=== PATIENT | female | born 1935 | race Caucasian/White ===

== ENCOUNTER 2016-05-29 16:11 | Emergency (ER) | payer OTHER ==
[~2016-05-29 16:11] MED LIST: ADVAIR 250/5028 PUFF INH; ALL DAY ALLERGY10 M2 PO; ASPIRIN325 MG PO; ATIVAN1 MG PO; ATROVENT (00.2 MG/ML INH; BENZONATATE100 MG PO; CERTAGEN1 EACH PO; CORDARONE200 MG PO; EVISTA60 MG PO; GLUCOPHAGE XR500 MG PO; HCTZ25 MG PO; HYDRALAZINE25 MG PO; ISOSORBIDE MONO60 MG PO; KLOR-CON 1010 MEQ PO; LACTINEX1 EACH PO; LISINOPRIL40 MG PO; LOPRESSOR50 MG PO; MIRALAX17 GM PO; MUCINEX 600MG600 MG PO; NITROQUIK SL0.4 MG SL; PAXIL10 MG PO; PAXIL20 M1 PO; PLAVIX75 MG PO; PREDNISONE5 MG PO; PRILOSEC20 MG PO; SINGULAIR10 MG PO; SPIRIVA 185 PUFFS/IN INH; SYNTHROID137 MCG PO; THEO-24200 MG PO; TOPROL XL 25MG25 MG PO; TRAMADOL HCL50 MG PO; VENTOLIN (2.5 MG/3 M INH; VITAMIN D1000 UNI1 PO; ZITHROMAX250 MG PO
== END 2016-05-29 17:37 | disposition home or self-care (01) ==
LOC: FER 16:11
DX: R04.0 Epistaxis (principal); I10 Essential (primary) hypertension; E11.9 Type 2 diabetes mellitus without complications; I48.91 Unspecified atrial fibrillation; E03.9 Hypothyroidism, unspecified; Z88.1 Allergy status to other antibiotic agents; Z88.5 Allergy status to narcotic agent; Z79.82 Long term (current) use of aspirin; Z79.02 Long term (current) use of antithrombotics/antiplatelets

== ENCOUNTER 2016-11-18 16:01 | Emergency (ER) | payer OTHER | END 2016-11-18 17:51 | disposition home or self-care (01) | LOC: FER 16:01 | DX: S80.01XA Contusion of right knee, initial encounter (principal); S20.211A Contusion of right front wall of thorax, initial encounter; Z88.1 Allergy status to other antibiotic agents; Z88.5 Allergy status to narcotic agent; W18.09XA Striking against other object with subsequent fall, initial encounter | CPT/HCPCS: 71101; 94010; J1100; J1885 ==

== ENCOUNTER 2020-06-07 15:53 | Day surgery (SDCO) | payer MEDICARE, OTHER ==
[~2020-06-07 15:53] MED LIST changes: +AMIODARONE HCL200 MG PO; +ASPIRIN EC325 MG PO; +BACLOFEN 10MG T10 MG PO; +CARDIZEM CD240 M1 PO; +CEFDINIR300 MG PO; +COLACE100 MG PO; +DALIRESP500 MCG PO; +HCTZ12.5 MG PO; +KLOR-CON M 1010 MEQ PO; -PAXIL20 M1 PO; +PREDNISONE10 M1 PO; +SYNTHROID125 MCG PO; +VIBRAMYCIN100 MG PO
[2020-06-07 16:53] LABS: BASOPHIL 0.6 % (0-2); HCT 23.5 % (37.0-47.0); HGB 7.6 g/dl (12.5-16.0); LYMPHOCYTE 6.8 % (15-48); MCH 30.5 pg (25.0-31.0); MCHC 32.3 g/dL (32.0-36.0); MCV 94.4 fL (78.0-100.0); MONOCYTE 10.6 % (0-12); MPV 9.3 fL (6.0-9.5); NEUTROPHIL 78.5 % (41-80); NRBC 0; PLT 268 K/uL (150-400); RBC 2.49 M/uL (4.20-5.40); RDW 13.3 % (11.5-14.0); WBC 8.3 K/uL (4.0-10.5)
[2020-06-07 17:04] LABS: INR 1.19 (0.9-1.2); PROTHROMBIN TIME 14.3 SECONDS (11.4-13.6)
[2020-06-07 17:13] LABS: ALBUMIN 3.5 g/dL (3.4-5.0); BILIRUBIN - TOTAL 0.2 mg/dL (0.2-1.0); BUN/CREAT RATIO (CALC) 11.1 RATIO; CREATININE 0.99 mg/dL (0.51-0.95); GLOBULIN (CALCULATION) 3.1 g/dL; POTASSIUM 4.9 mmol/L (3.5-5.1); TOTAL PROTEIN 6.6 g/dL (6.4-8.2)
[2020-06-07 17:20] LABS: CKMB 2.8 ng/mL (0.0-3.6); PRO-BNP 1635 pg/mL (<450)
[2020-06-07 17:33] LABS: LACTIC ACID 0.5 mmol/L (0.4-1.9)
[2020-06-07 19:43] LABS: BILIRUBIN NEGATIVE (NEGATIVE); BLOOD NEGATIVE Ery/uL (NEGATIVE); CLARITY CLEAR (CLEAR); COLOR YELLOW (YELLOW); GLUCOSE (U) NORMAL (NORMAL); LEUKOCYTES NEGATIVE Leu/uL (NEGATIVE); NITRITE POSITIVE (NEGATIVE); PROTEIN NEGATIVE (NEGATIVE); UROBILINOGEN 0.2 mg/dL (0.2-1.0); pH 7.5 (5.0-9.0)
[2020-06-07 19:48] LABS: BACTERIA 3+; SQUAMOUS EPITHELIAL CELLS RARE
[2020-06-07] MEDS ORDERED: CARAFATE1 GM PO (22:34)
[2020-06-07] MEDS ORDERED: MUCINEX 600MG600 MG PO (22:35)
[2020-06-07] MEDS ORDERED: WELLBUTRIN SR150 MG PO (22:35)
[2020-06-07] MEDS ORDERED: FOLIC ACID1 MG PO (22:36)
[2020-06-07] MEDS ORDERED: BACTRIM DS TAB1 EACH PO (22:36)
[2020-06-08 04:48] LABS: BASOPHIL 0.1 % (0-2); EOSINOPHIL 0 % (0-7); HCT 26.8 % (37.0-47.0); HGB 8.8 g/dl (12.5-16.0); LYMPHOCYTE 2.2 % (15-48); MCH 30.3 pg (25.0-31.0); MCHC 32.8 g/dL (32.0-36.0); MCV 92.4 fL (78.0-100.0); MONOCYTE 0.6 % (0-12); MPV 9.5 fL (6.0-9.5); NEUTROPHIL 96.7 % (41-80); NRBC 0; PLT 252 K/uL (150-400); RDW 14.1 % (11.5-14.0)
[2020-06-08 04:50] LABS: WBC 6.7 K/uL (4.0-10.5)
[2020-06-08 05:09] LABS: BUN/CREAT RATIO (CALC) 18.4 RATIO; CREATININE 0.76 mg/dL (0.51-0.95); POTASSIUM 4.7 mmol/L (3.5-5.1)
--- NOTE | 2020-06-08 13:54 | NUR ---
BLADDER SCAN PERFORMED IMMEDIATELY AFTER VOIDING. THREE READINGS CONFIRM A RESIDUAL BLADDER VOLUME OF 50 ML.
[2020-06-09] MEDS ORDERED: BACTRIM DS TAB1 EACH PO (07:34)
[2020-06-09] MEDS ORDERED: AZITHROMYCIN250 MG PO (07:34)
[2020-06-09] MEDS ORDERED: PREDNISONE 20MG20 MG PO (07:34)
[2020-06-09] MEDS ORDERED: DOXYCYCLINE MO100 MG PO (07:38)
[2020-06-09] MEDS ORDERED: DUONEB 2.5-0.5M1 AMP INH (08:22)
[2020-06-09] MEDS ORDERED: LASIX20 MG PO (08:22)
== END 2020-06-09 12:15 | disposition home health service (06) ==
LOC: FER 15:53 → FMS 18:44
PROVIDERS: Emergency Medicine; Nurse Practitioner; ADMIT Allergy & Immunology Allergy
DX: D50.9 Iron deficiency anemia, unspecified (principal); J44.1 Chronic obstructive pulmonary disease with (acute) exacerbation; S51.012A Laceration without foreign body of left elbow, initial encounter; N39.0 Urinary tract infection, site not specified; B96.89 Other specified bacterial agents as the cause of diseases classified elsewhere; I48.0 Paroxysmal atrial fibrillation; I25.10 Atherosclerotic heart disease of native coronary artery without angina pectoris; E78.5 Hyperlipidemia, unspecified; E03.9 Hypothyroidism, unspecified; E11.40 Type 2 diabetes mellitus with diabetic neuropathy, unspecified; I10 Essential (primary) hypertension; M19.90 Unspecified osteoarthritis, unspecified site; K21.9 Gastro-esophageal reflux disease without esophagitis; R13.10 Dysphagia, unspecified; M47.816 Spondylosis without myelopathy or radiculopathy, lumbar region; Z87.891 Personal history of nicotine dependence; Z79.01 Long term (current) use of anticoagulants; Z79.2 Long term (current) use of antibiotics; Z79.82 Long term (current) use of aspirin; Z79.899 Other long term (current) drug therapy; Z88.1 Allergy status to other antibiotic agents; Z88.5 Allergy status to narcotic agent; Z99.81 Dependence on supplemental oxygen; Z20.822 Contact with and (suspected) exposure to COVID-19; W19.XXXA Unspecified fall, initial encounter
CPT/HCPCS: 36415; 36430; 36600; 71045; 72110; 72170; 73080; 80048; 80053; 81001; 82553; 82803; 83036; 83540; 83550; 83605; 83880; 84484; 85025; 85610; 85730; 86850; 86900; 86901; 86922; 90471; 90715; 93005; 94640; 94664; 97165; 97535; G0378; J0360; J0456; J0696; J1940; J2916; J2930; J7050; J7512; P9016; U0002

== ENCOUNTER 2020-08-10 13:38 | Emergency (ER) | payer MEDICARE, OTHER ==
[~2020-08-10 13:38] MED LIST changes: +AZITHROMYCIN250 MG PO; +BACTRIM DS TAB1 EACH PO; +CARAFATE1 GM PO; +DOXYCYCLINE MO100 MG PO; +DUONEB 2.5-0.5M1 AMP INH; +FOLIC ACID1 MG PO; +LASIX20 MG PO; +PREDNISONE 20MG20 MG PO; +WELLBUTRIN SR150 MG PO
[2020-08-10 14:08] LABS: BASOPHIL 0.8 % (0-2); EOSINOPHIL 3.2 % (0-7); HCT 26.9 % (37.0-47.0); HGB 8.9 g/dl (12.5-16.0); LYMPHOCYTE 14.7 % (15-48); MCH 30.3 pg (25.0-31.0); MCHC 33.1 g/dL (32.0-36.0); MCV 91.5 fL (78.0-100.0); MONOCYTE 9.3 % (0-12); MPV 9.7 fL (6.0-9.5); NEUTROPHIL 70.7 % (41-80); NRBC 0; PLT 313 K/uL (150-400); RBC 2.94 M/uL (4.20-5.40); RDW 14.5 % (11.5-14.0)
[2020-08-10 14:40] LABS: LACTIC ACID 1.6 mmol/L (0.4-1.9)
[2020-08-10 15:07] LABS: ALBUMIN 3.5 g/dL (3.4-5.0); BILIRUBIN - TOTAL 0.3 mg/dL (0.2-1.0); CREATININE 0.81 mg/dL (0.51-0.95); GLOBULIN (CALCULATION) 2.7 g/dL; POTASSIUM 4.5 mmol/L (3.5-5.1); PRO-BNP 300 pg/mL (<450); TOTAL PROTEIN 6.2 g/dL (6.4-8.2)
[2020-08-10 16:49] LABS: BILIRUBIN NEGATIVE (NEGATIVE); BLOOD NEGATIVE Ery/uL (NEGATIVE); CLARITY CLEAR (CLEAR); COLOR YELLOW (YELLOW); GLUCOSE (U) NORMAL (NORMAL); LEUKOCYTES NEGATIVE Leu/uL (NEGATIVE); NITRITE NEGATIVE (NEGATIVE); PROTEIN NEGATIVE (NEGATIVE); SPECIFIC GRAVITY 1.015 (1.001-1.030); UROBILINOGEN 0.2 mg/dL (0.2-1.0)
[2020-08-10] MEDS ORDERED: PREDNISONE 20MG20 MG PO (19:21)
[2020-08-10] MEDS ORDERED: VIBRAMYCIN100 MG PO (19:21)
== END 2020-08-10 19:40 | disposition home or self-care (01) ==
LOC: FER 13:38
PROVIDERS: Emergency Medicine; Nurse Practitioner Family
DX: J44.1 Chronic obstructive pulmonary disease with (acute) exacerbation (principal); E03.9 Hypothyroidism, unspecified; Z90.49 Acquired absence of other specified parts of digestive tract; Z87.891 Personal history of nicotine dependence; Z88.1 Allergy status to other antibiotic agents; Z88.5 Allergy status to narcotic agent; Z99.81 Dependence on supplemental oxygen
CPT/HCPCS: 36415; 71045; 71046; 80053; 81003; 83605; 83880; 84145; 84484; 85025; 87040; 93005; J2930

== ENCOUNTER 2020-10-03 17:36 | Inpatient (IN) | payer MEDICARE, OTHER ==
[~2020-10-03] VITALS: Ht 165.1 cm; Wt 78.1 kg
[2020-10-03 18:14] LABS: BASOPHIL 0.7 % (0-2); EOSINOPHIL 4.4 % (0-7); HCT 28.2 % (37.0-47.0); LYMPHOCYTE 13.6 % (15-48); MCH 29.9 pg (25.0-31.0); MCHC 31.9 g/dL (32.0-36.0); MCV 93.7 fL (78.0-100.0); MONOCYTE 10.5 % (0-12); NEUTROPHIL 70.2 % (41-80); NRBC 0; PLT 235 K/uL (150-400); RBC 3.01 M/uL (4.20-5.40); RDW 13.8 % (11.5-14.0); WBC 8.1 K/uL (4.0-10.5)
[2020-10-03 18:37] LABS: BILIRUBIN - TOTAL 0.3 mg/dL (0.2-1.0); BUN/CREAT RATIO (CALC) 37.4 RATIO; CREATININE 1.23 mg/dL (0.51-0.95); FT4 (FREE T4) 1.7 ng/dL (0.76-1.46); GLOBULIN (CALCULATION) 2.7 g/dL; POTASSIUM 5.5 mmol/L (3.5-5.1); TOTAL PROTEIN 6.7 g/dL (6.4-8.2)
[2020-10-03] MEDS ORDERED: ASPIRIN EC81 MG PO (21:27)
[2020-10-03] MEDS ORDERED: VALSARTAN40 MG PO (21:27)
[2020-10-03] MEDS ORDERED: KEFLEX250 MG PO (21:29)
[2020-10-03] MEDS ORDERED: AZELASTINE205.5 MCG/ (21:30)
[2020-10-03] MEDS ORDERED: FLONASE ALLER15.8 ML (21:32)
--- NOTE | 2020-10-04 05:00 | NUR ---
AT 0430 PT CALLED THIS NURSE INTO ROOM C/O OF LEFT FACIAL NUMBNESS,ASKED PT IF THAT WAS HER ONLY COMPLAINT AND PT STATED YES,STROKE ASSESS PERFORMED WITH NO S/S OF WEAKNESS TO ANY EXTREMITY,ABLE TO FEEL ALL EXTREMITY,NEGATIVE NIH STROKE SCALE,INFORMED JULIOCESAR OF FINDINGS,CT OF HEAD ORDERED,PT WAS BROUGHT DOWN TO CT PER BED AND 2 STaff MEMBERS AT 0435, BROUGHT BACK AT 0450,AT 0500 RADIOLOGIST CALLED WITH RESULTS WHICH WERE NO ACUTE FINDINGS,NOTIFIED CLARISSA BOLIVAR OF RESULTS,NO NEW ORDERS AT THIS TIME
[2020-10-04 07:06] LABS: BASOPHIL 1.2 % (0-2); EOSINOPHIL 4.3 % (0-7); HCT 27.8 % (37.0-47.0); HGB 8.6 g/dl (12.5-16.0); LYMPHOCYTE 15.4 % (15-48); MCH 29.4 pg (25.0-31.0); MCHC 30.9 g/dL (32.0-36.0); MCV 94.9 fL (78.0-100.0); MPV 10.7 fL (6.0-9.5); NEUTROPHIL 66.7 % (41-80); NRBC 0; PLT 228 K/uL (150-400); RBC 2.93 M/uL (4.20-5.40); RDW 13.8 % (11.5-14.0); WBC 6.9 K/uL (4.0-10.5)
[2020-10-04 07:40] LABS: CREATININE 1.09 mg/dL (0.51-0.95); POTASSIUM 4.8 mmol/L (3.5-5.1)
--- NOTE | 2020-10-04 14:59 | NUR ---
10/04/20 Ms. Marcelo lives with her daughter. [facility] is current and has been notified of admission. Patient has home 02,rw, 3in1, and s. chair. Please notify [facility] at [phone] if patient discharges over the weekend.
[2020-10-05 05:14] LABS: BASOPHIL 0.8 % (0-2); EOSINOPHIL 5.1 % (0-7); HCT 28.9 % (37.0-47.0); LYMPHOCYTE 18.4 % (15-48); MCH 29.2 pg (25.0-31.0); MCHC 31.1 g/dL (32.0-36.0); MCV 93.8 fL (78.0-100.0); MPV 9.7 fL (6.0-9.5); NEUTROPHIL 64.3 % (41-80); NRBC 0; PLT 222 K/uL (150-400); RBC 3.08 M/uL (4.20-5.40); RDW 13.5 % (11.5-14.0); WBC 7.8 K/uL (4.0-10.5)
[2020-10-05 05:40] LABS: CREATININE 0.78 mg/dL (0.51-0.95); POTASSIUM 4.1 mmol/L (3.5-5.1)
[2020-10-06] MEDS ORDERED: PACERONE100 MG PO (08:52)
[2020-10-06] MEDS ORDERED: VALSARTAN320 MG PO (10:23)
== END 2020-10-06 12:58 | disposition home health service (06) | DRG 309 ==
LOC: FER 17:36 → FTCU 19:56 → FICU 19:56 → FTCU 22:59 → FMS 10-05 10:28
PROVIDERS: Internal Medicine; Nurse Practitioner; ADMIT Internal Medicine
DX: I49.5 Sick sinus syndrome (principal); N17.9 Acute kidney failure, unspecified; J96.11 Chronic respiratory failure with hypoxia; D50.9 Iron deficiency anemia, unspecified; I48.91 Unspecified atrial fibrillation; I25.10 Atherosclerotic heart disease of native coronary artery without angina pectoris; Z20.822 Contact with and (suspected) exposure to COVID-19; E03.9 Hypothyroidism, unspecified; E78.5 Hyperlipidemia, unspecified; E11.40 Type 2 diabetes mellitus with diabetic neuropathy, unspecified; M19.90 Unspecified osteoarthritis, unspecified site; Z51.5 Encounter for palliative care; Z66 Do not resuscitate; I11.9 Hypertensive heart disease without heart failure; F41.9 Anxiety disorder, unspecified; I27.23 Pulmonary hypertension due to lung diseases and hypoxia; F32.9 Major depressive disorder, single episode, unspecified; Z87.891 Personal history of nicotine dependence; Z99.81 Dependence on supplemental oxygen; Z87.01 Personal history of pneumonia (recurrent); Z91.81 History of falling; Z90.49 Acquired absence of other specified parts of digestive tract; Z90.89 Acquired absence of other organs; Z98.890 Other specified postprocedural states; Z88.6 Allergy status to analgesic agent; Z88.5 Allergy status to narcotic agent; Z88.1 Allergy status to other antibiotic agents; Z79.82 Long term (current) use of aspirin; Z79.51 Long term (current) use of inhaled steroids; Z79.890 Hormone replacement therapy; Z79.899 Other long term (current) drug therapy
CPT/HCPCS: 36415; 70450; 71045; 80048; 80053; 82607; 82728; 82746; 83540; 83550; 84439; 84443; 84484; 85025; 93005; 94010; 94640; 94667; 94668; J0360; J7030; U0002

== ENCOUNTER 2020-12-16 17:50 | Emergency (ER) | payer MEDICARE, OTHER ==
[~2020-12-16 17:50] MED LIST changes: +ASPIRIN EC81 MG PO; +AZELASTINE205.5 MCG/; +FLONASE ALLER15.8 ML; +KEFLEX250 MG PO; +PACERONE100 MG PO; +VALSARTAN320 MG PO; +VALSARTAN40 MG PO
[2020-12-16 18:26] LABS: EOSINOPHIL 6.7 % (0-7); HCT 34.7 % (37.0-47.0); HGB 11.3 g/dl (12.5-16.0); LYMPHOCYTE 16.2 % (15-48); MCH 29.3 pg (25.0-31.0); MCHC 32.6 g/dL (32.0-36.0); MCV 89.9 fL (78.0-100.0); MPV 9.5 fL (6.0-9.5); NEUTROPHIL 66.5 % (41-80); NRBC 0; PLT 289 K/uL (150-400); RBC 3.86 M/uL (4.20-5.40); RDW 13.6 % (11.5-14.0); WBC 8.1 K/uL (4.0-10.5)
[2020-12-16 18:30] LABS: INR 1.08 (0.9-1.2); PROTHROMBIN TIME 13.4 SECONDS (11.8-13.4)
[2020-12-16 18:31] LABS: PTT 35.4 SECONDS (24.4-34.7)
[2020-12-16 18:38] LABS: ALBUMIN 4.2 g/dL (3.4-5.0); BILIRUBIN - TOTAL 0.4 mg/dL (0.2-1.0); BUN/CREAT RATIO (CALC) 27.3 RATIO; CREATININE 0.66 mg/dL (0.51-0.95); POTASSIUM 4.4 mmol/L (3.5-5.1); TOTAL PROTEIN 7.2 g/dL (6.4-8.2)
[2020-12-16 18:44] LABS: PRO-BNP 279 pg/mL (<450)
[2020-12-16 21:37] LABS: BILIRUBIN NEGATIVE (NEGATIVE); BLOOD NEGATIVE Ery/uL (NEGATIVE); CLARITY CLEAR (CLEAR); COLOR YELLOW (YELLOW); GLUCOSE (U) NORMAL (NORMAL); LEUKOCYTES NEGATIVE Leu/uL (NEGATIVE); NITRITE POSITIVE (NEGATIVE); PROTEIN NEGATIVE (NEGATIVE); SPECIFIC GRAVITY 1.015 (1.001-1.030); UROBILINOGEN 0.2 mg/dL (0.2-1.0); pH 7.5 (5.0-9.0)
[2020-12-16 21:44] LABS: AMORPHOUS URATES CRYSTALS MODERATE; BACTERIA 3+; GRANULAR CASTS TRACE; URINARY WBC RARE
== END 2020-12-16 22:20 | disposition home or self-care (01) ==
LOC: FER 17:50
PROVIDERS: Emergency Medicine
DX: R07.89 Other chest pain (principal); I48.91 Unspecified atrial fibrillation; I10 Essential (primary) hypertension; J44.9 Chronic obstructive pulmonary disease, unspecified; Z88.1 Allergy status to other antibiotic agents; Z88.5 Allergy status to narcotic agent; Z87.891 Personal history of nicotine dependence; Z79.82 Long term (current) use of aspirin
CPT/HCPCS: 36415; 71045; 80053; 81001; 83880; 84484; 85025; 85379; 85610; 85730; 93005; 93971

== ENCOUNTER 2020-12-20 16:30 | Inpatient (IN) | payer MEDICARE, OTHER ==
[~2020-12-20] VITALS: Ht 167.6 cm; Wt 79.6 kg
[2020-12-20 17:58] LABS: BASOPHIL 0.3 % (0-2); EOSINOPHIL 0.3 % (0-7); HCT 31.7 % (37.0-47.0); HGB 10.2 g/dl (12.5-16.0); LYMPHOCYTE 3.8 % (15-48); MCH 29.3 pg (25.0-31.0); MCHC 32.2 g/dL (32.0-36.0); MCV 91.1 fL (78.0-100.0); MONOCYTE 7.7 % (0-12); MPV 10.6 fL (6.0-9.5); NEUTROPHIL 87.2 % (41-80); NRBC 0; PLT 229 K/uL (150-400); RBC 3.48 M/uL (4.20-5.40); RDW 13.8 % (11.5-14.0)
[2020-12-20 18:13] LABS: ALBUMIN 3.4 g/dL (3.4-5.0); BILIRUBIN - TOTAL 0.6 mg/dL (0.2-1.0); BUN/CREAT RATIO (CALC) 23.7 RATIO; CREATININE 0.59 mg/dL (0.51-0.95); POTASSIUM 4.3 mmol/L (3.5-5.1); TOTAL PROTEIN 6.4 g/dL (6.4-8.2)
[2020-12-20 18:20] LABS: PRO-BNP 805 pg/mL (<450)
[2020-12-20 18:23] LABS: LACTIC ACID 0.9 mmol/L (0.4-1.9)
[2020-12-20 19:01] LABS: C-REACTIVE PROTEIN < 0.20 mg/dL (<=0.90); LDH 137 U/L (81-234); MAGNESIUM 2.1 mg/dL (1.8-2.4)
[2020-12-20 19:51] LABS: BILIRUBIN NEGATIVE (NEGATIVE); BLOOD NEGATIVE Ery/uL (NEGATIVE); CLARITY CLEAR (CLEAR); COLOR YELLOW (YELLOW); GLUCOSE (U) NORMAL (NORMAL); LEUKOCYTES TRACE Leu/uL (NEGATIVE); NITRITE POSITIVE (NEGATIVE); PROTEIN TRACE (LOW) mg/dL (NEGATIVE); UROBILINOGEN 0.2 mg/dL (0.2-1.0); pH 6.5 (5.0-9.0)
[2020-12-20 20:07] LABS: BACTERIA 4+
[2020-12-20 20:09] LABS: TRANSITIONAL EPITHELIAL CELLS RARE
[2020-12-20 22:10] LABS: CORONAVIRUS 2019 SARS-COV-2 NEGATIVE (NEGATIVE); INFLUENZA A NAA NEGATIVE (NEGATIVE)
[2020-12-20] MEDS ORDERED: AMIODARONE HCL200 MG PO (23:18)
[2020-12-20] MEDS ORDERED: ASPIRIN EC325 MG PO (23:18)
[2020-12-20] MEDS ORDERED: WELLBUTRIN XL150 MG PO (23:22)
[2020-12-20] MEDS ORDERED: ZYRTEC10 MG PO (23:24)
[2020-12-20] MEDS ORDERED: VIBRAMYCIN100 MG PO (23:25)
[2020-12-20] MEDS ORDERED: ROBITUSSIN100 MG/5 M PO (23:30)
[2020-12-20] MEDS ORDERED: DUONEB 2.5-0.5M1 AMP INH (23:32)
[2020-12-20] MEDS ORDERED: NITROQUIK SL0.4 MG SL (23:35)
[2020-12-20] MEDS ORDERED: PRILOSEC20 MG PO (23:36)
[2020-12-20] MEDS ORDERED: DIOVAN320 MG PO (23:40)
[2020-12-20] MEDS ORDERED: ULTRAM50 MG PO (23:40)
[2020-12-20] MEDS ORDERED: PULMICORT0.5 MG/2 M INH (23:44)
[2020-12-21 06:10] LABS: BASOPHIL 0.3 % (0-2); EOSINOPHIL 0.3 % (0-7); HCT 28.1 % (37.0-47.0); HGB 9.1 g/dl (12.5-16.0); LYMPHOCYTE 7.6 % (15-48); MCH 29.5 pg (25.0-31.0); MCHC 32.4 g/dL (32.0-36.0); MCV 91.2 fL (78.0-100.0); MONOCYTE 9.2 % (0-12); MPV 9.3 fL (6.0-9.5); NEUTROPHIL 82.1 % (41-80); NRBC 0; PLT 238 K/uL (150-400); RBC 3.08 M/uL (4.20-5.40); RDW 14.1 % (11.5-14.0); WBC 17.4 K/uL (4.0-10.5)
[2020-12-21 07:02] LABS: ALBUMIN 2.7 g/dL (3.4-5.0); ALKALINE PHOSHATASE 114 U/L (46-116); ALT 26 U/L (14-59); AST 15 U/L (15-37); BILIRUBIN - TOTAL 0.4 mg/dL (0.2-1.0); BUN 14 mg/dL (7-18); BUN/CREAT RATIO (CALC) 21.9 RATIO; C-REACTIVE PROTEIN >18.00 mg/dL (<=0.90); CHLORIDE 100 mmol/L (98-107); CO2 (BICARBONATE) 27 mmol/L (21-32); CREATININE 0.64 mg/dL (0.51-0.95); GLOBULIN (CALCULATION) 3.3 g/dL; GLUCOSE 103 mg/dL (74-106); PHOSPHORUS 3.1 mg/dL (2.6-4.7); POTASSIUM 4.2 mmol/L (3.5-5.1)
[2020-12-22 05:46] LABS: BASOPHIL 0.3 % (0-2); EOSINOPHIL 0.2 % (0-7); HCT 29.1 % (37.0-47.0); HGB 9.2 g/dl (12.5-16.0); LYMPHOCYTE 3.1 % (15-48); MCH 28.9 pg (25.0-31.0); MCHC 31.6 g/dL (32.0-36.0); MCV 91.5 fL (78.0-100.0); MONOCYTE 5.7 % (0-12); MPV 9.3 fL (6.0-9.5); NEUTROPHIL 87.4 % (41-80); NRBC 0; PLT 284 K/uL (150-400); RBC 3.18 M/uL (4.20-5.40); RDW 13.7 % (11.5-14.0); RETICULOCYTE COUNT 1.2 % (1.0-2.0); WBC 18.5 K/uL (4.0-10.5)
[2020-12-22 06:35] LABS: IRON % SATURATION 21.9 %SAT (20-50)
[2020-12-22 07:17] LABS: BUN 14 mg/dL (7-18); BUN/CREAT RATIO (CALC) 22.2 RATIO; C-REACTIVE PROTEIN > 18.00 mg/dL (<=0.90); CHLORIDE 104 mmol/L (98-107); CO2 (BICARBONATE) 26 mmol/L (21-32); CREATININE 0.63 mg/dL (0.51-0.95); FOLIC ACID (SERUM) 39.5 ng/mL (8.6-58.9); GLUCOSE 137 mg/dL (74-106); MAGNESIUM 2.2 mg/dL (1.8-2.4); PHOSPHORUS 2.8 mg/dL (2.6-4.7)
[2020-12-23 05:41] LABS: BASOPHIL 0.7 % (0-2); EOSINOPHIL 0 % (0-7); HCT 29.5 % (37.0-47.0); HGB 9.4 g/dl (12.5-16.0); LYMPHOCYTE 5.1 % (15-48); MCH 28.8 pg (25.0-31.0); MCHC 31.9 g/dL (32.0-36.0); MCV 90.5 fL (78.0-100.0); MONOCYTE 7.5 % (0-12); MPV 9.5 fL (6.0-9.5); NEUTROPHIL 79.2 % (41-80); NRBC 0; PLT 329 K/uL (150-400); RBC 3.26 M/uL (4.20-5.40)
[2020-12-23 06:00] LABS: C-REACTIVE PROTEIN 10.7 mg/dL (<=0.90); CREATININE 0.62 mg/dL (0.51-0.95); MAGNESIUM 2.1 mg/dL (1.8-2.4); POTASSIUM 4.5 mmol/L (3.5-5.1)
[2020-12-23] MEDS ORDERED: AUGMENTIN 875-1 EACH PO (13:08)
[2020-12-23] MEDS ORDERED: TAMIFLU 75MG CA75 MG PO (13:08)
== END 2020-12-23 14:04 | disposition home health service (06) | DRG 871 ==
LOC: FER 16:30 → FMS 21:01
PROVIDERS: Emergency Medicine; Nurse Practitioner; ADMIT Internal Medicine
PROC: 8E0ZXY6 Isolation (ICD-10-PCS; principal; 2020-12-20)
DX: A41.9 Sepsis, unspecified organism (principal); J18.0 Bronchopneumonia, unspecified organism; J10.08 Influenza due to other identified influenza virus with other specified pneumonia; J96.21 Acute and chronic respiratory failure with hypoxia; N30.00 Acute cystitis without hematuria; Z16.11 Resistance to penicillins; J44.0 Chronic obstructive pulmonary disease with (acute) lower respiratory infection; J44.1 Chronic obstructive pulmonary disease with (acute) exacerbation; Z20.822 Contact with and (suspected) exposure to COVID-19; R65.20 Severe sepsis without septic shock; B95.2 Enterococcus as the cause of diseases classified elsewhere; E11.9 Type 2 diabetes mellitus without complications; I48.0 Paroxysmal atrial fibrillation; E03.9 Hypothyroidism, unspecified; E78.5 Hyperlipidemia, unspecified; E11.40 Type 2 diabetes mellitus with diabetic neuropathy, unspecified; I10 Essential (primary) hypertension; M19.90 Unspecified osteoarthritis, unspecified site; H10.9 Unspecified conjunctivitis; D50.9 Iron deficiency anemia, unspecified; Z88.5 Allergy status to narcotic agent; Z88.6 Allergy status to analgesic agent; Z88.1 Allergy status to other antibiotic agents; Z79.82 Long term (current) use of aspirin; Z79.51 Long term (current) use of inhaled steroids; Z79.890 Hormone replacement therapy; Z79.899 Other long term (current) drug therapy; Z99.81 Dependence on supplemental oxygen; Z90.49 Acquired absence of other specified parts of digestive tract; Z90.89 Acquired absence of other organs; Z98.890 Other specified postprocedural states; Z87.891 Personal history of nicotine dependence; Z82.49 Family history of ischemic heart disease and other diseases of the circulatory system; Z80.3 Family history of malignant neoplasm of breast; Y95 Nosocomial condition
CPT/HCPCS: 36415; 36600; 71045; 71275; 80048; 80053; 80202; 81001; 82728; 82746; 82803; 82962; 83540; 83550; 83605; 83615; 83735; 83880; 84100; 84145; 84484; 85025; 85379; 86140; 87040; 87070; 87088; 87205; 93005; 94010; 94640; 94668; 94760; 94762; J0456; J1100; J1650; J2185; J2405; J2543; J3370; J7030; J7050; Q9967; U0002

== ENCOUNTER 2021-06-09 16:07 | Inpatient (IN) | payer MEDICARE, OTHER ==
[~2021-06-09] VITALS: Ht 165.1 cm; Wt 76.9 kg
[~2021-06-09 16:07] MED LIST changes: +AUGMENTIN 875-1 EACH PO; +DIOVAN320 MG PO; +PULMICORT0.5 MG/2 M INH; +ROBITUSSIN100 MG/5 M PO; +TAMIFLU 75MG CA75 MG PO; +ULTRAM50 MG PO; +WELLBUTRIN XL150 MG PO; +ZYRTEC10 MG PO
[2021-06-09 17:10] LABS: BASOPHIL 0.2 % (0-2); EOSINOPHIL 0.2 % (0-7); HCT 26.9 % (37.0-47.0); HGB 9.1 g/dl (12.5-16.0); LYMPHOCYTE 5.1 % (15-48); MCH 30.3 pg (25.0-31.0); MCHC 33.8 g/dL (32.0-36.0); MCV 89.7 fL (78.0-100.0); MONOCYTE 6.8 % (0-12); MPV 11.5 fL (6.0-9.5); NEUTROPHIL 86.7 % (41-80); NRBC 0; RDW 12.6 % (11.5-14.0); WBC 19.4 K/uL (4.0-10.5)
[2021-06-09 17:25] LABS: INR 1.47 (0.9-1.2); PROTHROMBIN TIME 17.1 SECONDS (11.8-13.4); PTT 25.6 SECONDS (24.4-34.7)
[2021-06-09 17:34] LABS: ALBUMIN 3.3 g/dL (3.4-5.0); BILIRUBIN - TOTAL 0.6 mg/dL (0.2-1.0); BUN/CREAT RATIO (CALC) 20.2 RATIO; CREATININE 0.84 mg/dL (0.51-0.95); GLOBULIN (CALCULATION) 3.1 g/dL; TOTAL PROTEIN 6.4 g/dL (6.4-8.2)
[2021-06-09 18:00] LABS: PLT 76 K/uL (150-400)
[2021-06-09 18:47] LABS: BILIRUBIN NEGATIVE (NEGATIVE); BLOOD TRACE-INTACT Ery/uL (NEGATIVE); CLARITY CLEAR (CLEAR); COLOR YELLOW (YELLOW); GLUCOSE (U) TRACE mg/dL (NORMAL); LEUKOCYTES 2+ Leu/uL (NEGATIVE); NITRITE POSITIVE (NEGATIVE); PROTEIN TRACE (LOW) mg/dL (NEGATIVE); SPECIFIC GRAVITY <=1.005 (1.001-1.030); pH 6.5 (5.0-9.0)
[2021-06-09 18:54] LABS: BACTERIA 4+; RENAL EPITHELIAL CELLS RARE
[2021-06-09 19:00] LABS: CORONAVIRUS 2019 SARS-COV-2 NEGATIVE (NEGATIVE); INFLUENZA A NAA NEGATIVE (NEGATIVE)
[2021-06-09 23:01] LABS: BUN/CREAT RATIO (CALC) 19.3 RATIO; CREATININE 0.83 mg/dL (0.51-0.95); POTASSIUM 3.6 mmol/L (3.5-5.1)
[2021-06-09] MEDS ORDERED: ASPIRIN EC81 MG PO (23:24)
[2021-06-09] MEDS ORDERED: KEFLEX250 MG PO (23:24)
[2021-06-09] MEDS ORDERED: DALIRESP500 MCG PO (23:27)
[2021-06-09] MEDS ORDERED: FOLIC ACID1 MG PO (23:29)
[2021-06-09] MEDS ORDERED: SPIRIVA 18MCG18 MCG INH (23:34)
[2021-06-09] MEDS ORDERED: VITAMIN B-121000 MC1 SL (23:34)
[2021-06-09] MEDS ORDERED: PROBIOTIC 5 BI1 EACH PO (23:36)
[2021-06-09] MEDS ORDERED: MUCINEX 600MG600 MG PO (23:36)
[2021-06-09] MEDS ORDERED: IPRATROPIUM0.2 MG/ML INH (23:37)
[2021-06-09] MEDS ORDERED: VENTOLIN (2.5 MG/3 M INH (23:39)
[2021-06-10 05:44] LABS: BASOPHIL 0.3 % (0-2); EOSINOPHIL 0.1 % (0-7); HCT 27.3 % (37.0-47.0); HGB 9.2 g/dl (12.5-16.0); LYMPHOCYTE 5.4 % (15-48); MCH 30.1 pg (25.0-31.0); MCHC 33.7 g/dL (32.0-36.0); MCV 89.2 fL (78.0-100.0); MONOCYTE 6.2 % (0-12); MPV 9.3 fL (6.0-9.5); NEUTROPHIL 87.1 % (41-80); NRBC 0; PLT 246 K/uL (150-400); RBC 3.06 M/uL (4.20-5.40); RDW 12.7 % (11.5-14.0)
[2021-06-10 05:45] LABS: WBC 20.7 K/uL (4.0-10.5)
[2021-06-10 06:36] LABS: BUN/CREAT RATIO (CALC) 19.4 RATIO; CREATININE 0.72 mg/dL (0.51-0.95); FT4 (FREE T4) 1.7 ng/dL (0.76-1.46); IRON % SATURATION 4.1 %SAT (20-50); MAGNESIUM 1.8 mg/dL (1.8-2.4); POTASSIUM 3.6 mmol/L (3.5-5.1)
--- NOTE | 2021-06-10 11:48 | NUR ---
06/10/21 Ms. Marcelo has requested [facility] at discharge; Dr. Pantoja approved. A referral was made to [facility].
[2021-06-11 05:59] LABS: BASOPHIL 0.3 % (0-2); EOSINOPHIL 0.2 % (0-7); HCT 25.1 % (37.0-47.0); HGB 8.3 g/dl (12.5-16.0); LYMPHOCYTE 5.8 % (15-48); MCH 30.1 pg (25.0-31.0); MCHC 33.1 g/dL (32.0-36.0); MCV 90.9 fL (78.0-100.0); MONOCYTE 5.7 % (0-12); MPV 9.9 fL (6.0-9.5); NRBC 0; PLT 248 K/uL (150-400); RBC 2.76 M/uL (4.20-5.40); RDW 13.2 % (11.5-14.0); WBC 15.2 K/uL (4.0-10.5)
--- NOTE | 2021-06-11 06:02 | NUR ---
PT TAKES PILLS WITH APPLESAUCE.
[2021-06-11 06:05] LABS: INR 1.25 (0.9-1.2)
[2021-06-11 06:17] LABS: BUN/CREAT RATIO (CALC) 21.1 RATIO; CREATININE 0.71 mg/dL (0.51-0.95); POTASSIUM 3.8 mmol/L (3.5-5.1)
[2021-06-13 06:00] LABS: BASOPHIL 0.7 % (0-2); EOSINOPHIL 0 % (0-7); HCT 28.3 % (37.0-47.0); HGB 9.3 g/dl (12.5-16.0); LYMPHOCYTE 4.7 % (15-48); MCH 29.4 pg (25.0-31.0); MCHC 32.9 g/dL (32.0-36.0); MCV 89.6 fL (78.0-100.0); MONOCYTE 5.8 % (0-12); MPV 9.3 fL (6.0-9.5); NEUTROPHIL 78.4 % (41-80); NRBC 0.1; PLT 316 K/uL (150-400); RBC 3.16 M/uL (4.20-5.40); RDW 13.3 % (11.5-14.0); WBC 21.4 K/uL (4.0-10.5)
[2021-06-13 06:13] LABS: BUN/CREAT RATIO (CALC) 32.3 RATIO; CREATININE 0.62 mg/dL (0.51-0.95); MAGNESIUM 1.9 mg/dL (1.8-2.4); POTASSIUM 3.4 mmol/L (3.5-5.1)
[2021-06-16 05:53] LABS: BASOPHIL 0.1 % (0-2); EOSINOPHIL 0 % (0-7); HCT 31.7 % (37.0-47.0); HGB 10.4 g/dl (12.5-16.0); LYMPHOCYTE 6.8 % (15-48); MCH 29.3 pg (25.0-31.0); MCHC 32.8 g/dL (32.0-36.0); MCV 89.3 fL (78.0-100.0); MONOCYTE 7.4 % (0-12); MPV 8.9 fL (6.0-9.5); NEUTROPHIL 54.5 % (41-80); NRBC 0.2; PLT 449 K/uL (150-400); RBC 3.55 M/uL (4.20-5.40); RDW 13.8 % (11.5-14.0)
[2021-06-16 06:00] LABS: WBC 29.7 K/uL (4.0-10.5)
[2021-06-16 06:16] LABS: BUN/CREAT RATIO (CALC) 35.8 RATIO; CREATININE 0.67 mg/dL (0.51-0.95); POTASSIUM 3.3 mmol/L (3.5-5.1)
--- NOTE | 2021-06-16 10:38 | NUR ---
06/16/21 [facility] has been notified of dc to include orders for IV antibiotics. Awaiting response from [facility] re: cost. - Report given to CASPER Saeed RN.
[2021-06-16] MEDS ORDERED: PREDNISONE 20MG20 MG PO (13:37)
[2021-06-16] MEDS ORDERED: MACROBID100 MG PO (13:37)
== END 2021-06-16 15:45 | disposition home health service (06) | DRG 190 ==
LOC: FER 16:07 → FMS 22:18 → FTCU 06-11 15:02
PROVIDERS: Allergy & Immunology; Emergency Medicine; Internal Medicine; ADMIT Internal Medicine
PROC: 02HV33Z Insertion of Infusion Device into Superior Vena Cava, Percutaneous Approach (ICD-10-PCS; principal; 2021-06-14)
DX: J44.1 Chronic obstructive pulmonary disease with (acute) exacerbation (principal); J18.9 Pneumonia, unspecified organism; N39.0 Urinary tract infection, site not specified; E87.1 Hypo-osmolality and hyponatremia; J44.0 Chronic obstructive pulmonary disease with (acute) lower respiratory infection; R06.89 Other abnormalities of breathing; B95.2 Enterococcus as the cause of diseases classified elsewhere; B96.89 Other specified bacterial agents as the cause of diseases classified elsewhere; Z20.822 Contact with and (suspected) exposure to COVID-19; J44.9 Chronic obstructive pulmonary disease, unspecified; D69.6 Thrombocytopenia, unspecified; I48.0 Paroxysmal atrial fibrillation; I10 Essential (primary) hypertension; K59.00 Constipation, unspecified; K21.9 Gastro-esophageal reflux disease without esophagitis; E78.5 Hyperlipidemia, unspecified; E03.9 Hypothyroidism, unspecified; E11.40 Type 2 diabetes mellitus with diabetic neuropathy, unspecified; D50.9 Iron deficiency anemia, unspecified; M19.90 Unspecified osteoarthritis, unspecified site; I25.10 Atherosclerotic heart disease of native coronary artery without angina pectoris; Z99.81 Dependence on supplemental oxygen; Z79.899 Other long term (current) drug therapy; Z87.891 Personal history of nicotine dependence; Z90.49 Acquired absence of other specified parts of digestive tract; Z98.41 Cataract extraction status, right eye; Z98.42 Cataract extraction status, left eye; Z88.1 Allergy status to other antibiotic agents; Z88.5 Allergy status to narcotic agent; Z79.82 Long term (current) use of aspirin
CPT/HCPCS: 36415; 71045; 71275; 80048; 80053; 81001; 82962; 83540; 83550; 83605; 83735; 83880; 84439; 84443; 84484; 85025; 85379; 85610; 85730; 87076; 87088; 87186; 93005; 94010; 94640; C1751; J0456; J0696; J1335; J1642; J1650; J2270; J2916; J2920; J2930; J3480; J7040; J7050; J7512; Q9967; U0002